=== PATIENT | male | born 1980 | race Caucasian/White ===

== ENCOUNTER 2018-09-12 19:26 | Inpatient (IN) | payer MEDICAID ==
[~2018-09-12] VITALS: Ht 185.4 cm; Wt 95.0 kg
--- NOTE | ~2018-09-12 | MORECARE ---
CASE MANAGEMENT DISCHARGE SUMMARY PATIENT: NEIDA SOUTH UNIT: [id number] ADM DATE: 09/12/18 AGE: 37 : 78 SEX: M ROOM/BED: D.2206 AUTHOR: PIYUSH HAY PHYSICIAN: REFERRING PHYSICIAN: AHMET BACON MD DATE OF SERVICE: 09/16/18 Discharge Plan Patient Name: NEIDA SOUTH Facility: [facility]:[place] : 1980 Planned Disposition: [facility] Facility Anticipated Discharge Date: Discharge Date: 09/15/2018 Expected LOS: 0 Initial Reviewer: [email or web address] Initial Review Date: 09/12/2018 Generated: 09/16/18 10:16 am Comments DCP- Discharge Planning Updated by [email or web address]: Jamila Prado on 09/15/18 12:[address] PATIENT IS BEING [facility]ING [facility], [facility] WILL SET UP TRANSPORTATION AND MARCELL CAPUTO HAS DONE THE PEER 2 PEER DCP- Discharge Planning Updated by [email or web address]: Jamila Prado on 09/13/18 9:[address] Patient Name: NEIDA SOUTH Admission Status: ER Accout number: [id number] Admission Date: 09-12-2018 : 1980 Admission Diagnosis: Attending: AHMET BACON Current LOS: 1 Anticipated DC Date: Planned Disposition: [facility] Primary Insurance: [place] DEPT [place] [employer] Discharge Planning Comments: 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 [facility] WILL ARRANGE TRANSPORTATION. CM TO FOLLOW AND ASSIST WHERE NEEDED Elevator Service Technician: Jamila Prado Last DP export: 09/15/18 12:11 Patient Name: NEIDA SOUTH Page 52050 at 0916 All edits/amendments must be made on the electronic document DICTATION DATE: 09/16/18915 CONFERENCE PLANNER: AARON 09/16/18915 RPT#: [id number] DC DATE:09/15/18 STATUS: DIS IN [facility] [address] [place] [address] END OF REPORT
--- NOTE | ~2018-09-12 | MORECARE ---
CASE MANAGEMENT DISCHARGE SUMMARY PATIENT: NEIDA SOUTH UNIT: [id number] ADM DATE: 09/12/18 AGE: 37 : 78 SEX: M ROOM/BED: D.2206 AUTHOR: PIYUSH HAY PHYSICIAN: REFERRING PHYSICIAN: AHMET BACON MD DATE OF SERVICE: 09/13/18 Discharge Plan Patient Name: NEIDA SOUTH Facility: [facility]:[place] : 1980 Planned Disposition: [facility] Anticipated Discharge Date: Discharge Date: Expected LOS: Initial Reviewer: [email or web address] Initial Review Date: 09/12/2018 Generated: 09/13/18 11:20 am DCP- Discharge Planning Updated by [email or web address]: Jamila Prado on 09/13/18 9:[address] Patient Name: NEIDA SOUTH Admission Status: ER Accout number: [id number] Admission Date: 09-12-2018 : 1980 Admission Diagnosis: Attending: AHMET BACON Current LOS: 1 Anticipated DC Date: Planned Disposition: [facility] Primary Insurance: [place] [employer] [place] [employer] Discharge Planning Comments: 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 [facility] WILL ARRANGE TRANSPORTATION. CM TO FOLLOW AND ASSIST WHERE NEEDED Welcome Center Attendant: Jamila Prado Last DP export: 09/13/18 9:12 Patient Name: NEIDA SOUTH Page 30907 at 1020 All edits/amendments must be made on the electronic document DICTATION DATE: 09/13/18 1019 PEDIATRICIAN/MEDICAL DOCTOR: AARON 09/13/18 1019 RPT#: [id number] DC DATE: STATUS: ADM IN [facility] [address] [place] [address] END OF REPORT
--- NOTE | ~2018-09-12 | CN ---
PATIENT NAME:NEIDA MADDEN MEDICAL RECORD: [id number] : [birth year] LOCATION:D.MS [place]5 ADMIT DATE: 09/12/18 ACCOUNT: [id number] CONSULTING PHYSICIAN: YUE MCRAE MD REFERRING PHYSICIAN: AHMET BACON MD DATE OF CONSULTATION: 09/13/2018 REQUESTING PHYSICIAN: Carmelo Presley MD REASON FOR CONSULTATION: Pneumonia, possible aspiration. HISTORY OF PRESENT ILLNESS: Mr. Madden is a 37-year-old gentleman who is from nursing home. The patient had colonoscopy a few days ago and then he woke up vomiting and he believed that he aspirated at the same time. He has fever and chill. There are no night sweats. Coughing with very little sputum production. REVIEW OF THE SYSTEMS: As in history of present illness. PAST MEDICAL HISTORY: 1. Seizure disorder. 2. Asthma. 3. Hypertension. 4. Gastroesophageal reflux disease. 5. Chronic backache. ALLERGIES: HE IS ALLERGIC TO PENICILLIN AND SULFA. MEDICATIONS: [employer] was reviewed. He is not on any inhalers. PERSONAL AND SOCIAL HISTORY: He is ex-smoker, he quit few years ago. He is nondrinker. FAMILY HISTORY: Significant for cardiovascular disease. PHYSICAL EXAMINATION: GENERAL: The patient is now lying comfortably in bed. He is not in acute distress. VITAL SIGNS: The blood pressure is 147/86, pulse is 101, respiration is 18, temperature is 99.9, and SpO2 is 93% on room air. HEENT: Conjunctivae are pink. Sclerae are not icteric. NECK: Neck is supple. No JVD. CHEST: The chest excursion is minimal with bilateral crackles and wheezing on forceful expiration. HEART: Rhythm regular. Normal sound. No murmur. ABDOMEN: Abdomen is soft. Bowel sounds present. No hepatosplenomegaly. RECTAL: Deferred. EXTREMITIES: No cyanosis, no clubbing, and no pedal edema. SKIN: The skin is warm. Normal turgor. CENTRAL NERVOUS SYSTEM: The patient is awake and alert. There is no obvious cranial nerve abnormality. The gait was not tested. DIAGNOSTIC DATA: CT scan of the chest; there is consolidation of the left lower lobe and lingula. There is wall thickening of the distal esophagus. CONSULT REPORT [id number] NEIDA MADDEN [facility] DATA: CBC with WBC 18.9, hemoglobin 14.4, hematocrit 40.8, and platelet count is 206. IMPRESSION: 1. Pneumonia, left lower lobe, lingula, possible aspiration pneumonia as the patient vomited post-colonoscopy. 2. Leukocytosis secondary to pneumonia. 3. Asthma. 4. Gastroesophageal reflux disease. 5. Ex-smoker. 6. Seizure disorder. RECOMMENDATION: 1. Start on meropenem 1 gram q. 8 hourly. 2. Start Brovana and budesonide nebulizer. 3. Chest x-ray PA and lateral in the morning. 4. Mucinex DM. 5. Followup labs. Dr. Presley, thank you for involving me in the care of Mr. Madden. TRANSINT:[id number] Voice Confirmation ID: [id number] DOCUMENT ID: [id number] YUE MCRAE MD at 1711 CC: [id number] DICTATION DATE: 09/13/18 1620 SITE CONTROLLER: 09/13/18 1848 DIS IN 09/15/18 [facility] [address] [place] [address]
--- NOTE | ~2018-09-12 | EC ---
PATIENT:NEIDA SOUTH DATE OF SERVICE: 09/12/18 SEX: M MEDICAL RECORD: [id number] DATE OF : [birth year] LOCATION:D.MS [place] AGE OF PATIENT: 37 ADMISSION DATE: 09/12/18 REFERRING PHYSICIAN: INTERPRETING PHYSICIAN: ADRIANA ROPER MD ECHOCARDIOGRAM REPORT ECHO CHARGES 4 ECHO COMPLETE Date: 09/14/18 CLINICAL DIAGNOSIS: RESPIRATORY ARREST POST PROCEDURE ECHOCARDIOGRAPHIC MEASUREMENTS (adult normal given) AC root (d.<3.7cm) 3.6 cm LV Septum d (<1.2 cm> 1.4 cm Valve Excursion 2.1 cm LV Septum (systole) 1.5 cm Left Atria (s.<4.0cm> 4.6 cm LVPW d(<1.2cm) 0.8 cm RV (d.<2.3cm) 3.9 cm LVPW (sytole) 0.9 cm LV diastole(<5.6CM) 4.7 cm MV E-F(>70mm/sec) cm LV systole 3.6 cm LVOT Diameter 1.8 cm MV exc.(>10mm) cm Est.ejection fraction (50-75%) % DOPPLER: LVIT cm/sec A 66 cm/sec E 122 cm/sec LA cm/sec RVSP 23.4 mmHg LVOT 138 cm/sec AOP1/2T m/s Asc. Ao 127 cm/sec RVOT 88 cm/sec RA cm/sec PA 110 cm/sec AV Gradient Peak 6.4 mmHg AV Mean 4.1 mmHg AV Area 2.8 cm MV Gradient Peak 6.2 mmHg MV Mean 1.8 mmHg MV Area cm COMMENTS: Core Fitter: Iván BARBA Metal Polisher: 1 Dr. Roper TAPE# PACS Pericardial Effusion N DATE OF SERVICE: 09/14/2018 FINDINGS: 1. Left ventricular chamber size is within normal limits. Left ventricular systolic function is normal. Overall ejection fraction is estimated at 60%. 2. Left atrium is enlarged at 4.6 cm. Right atrium and right ventricle chamber sizes are as well mildly dilated. 3. Valvular structures have normal structure and motion. 4. Doppler interrogation reveals trace tricuspid regurgitation. No other valvular insufficiency or stenosis. Pulmonary systolic pressure is estimated at ECHOCARDIOGRAM REPORT [id number] NEIDA SOUTH 24 mmHg. 5. No evidence of pericardial effusion or left ventricular thrombus. TRANSINT:[id number] Voice Confirmation ID: [id number] DOCUMENT ID: [id number] ADRIANA ROPER MD at 1138 CC: [id number] DICTATION DATE: 09/14/181556 SENIOR UNDERWRITING ASSISTANT: 09/14/18 1827 ADM IN [facility] [address] [place] [address]
--- NOTE | ~2018-09-12 | MORECARE ---
CASE MANAGEMENT DISCHARGE SUMMARY PATIENT: NEIDA SOUTH UNIT: [id number] ADM DATE: 09/12/18 AGE: 37 : [birth year] SEX: M ROOM/BED: D.2206 AUTHOR: PIYUSH HAY PHYSICIAN: REFERRING PHYSICIAN: AHMET BACON MD DATE OF SERVICE: 09/13/18 Discharge Plan Patient Name: NEIDA SOUTH Facility: [facility]:[place] : 1980 Planned Disposition: [facility] Facility Anticipated Discharge Date: Discharge Date: Expected LOS: Initial Reviewer: [email or web address] Initial Review Date: 09/12/2018 Generated: 09/13/18 11:12 am Patient Name: NEIDA SOUTH Page 46656 at 1012 All edits/amendments must be made on the electronic document DICTATION DATE: 09/13/18 1012 PROCESS ARCHITECT: AARON 09/13/18 1012 RPT#: [id number] DC DATE: STATUS: ADM IN [facility] [address] [place] [address] END OF REPORT
--- NOTE | ~2018-09-12 | MORECARE ---
CASE MANAGEMENT DISCHARGE SUMMARY PATIENT: NEIDA SOUTH UNIT: [id number] ADM DATE: 09/12/18 AGE: 37 : [birth year] SEX: M ROOM/BED: D.2206 AUTHOR: PIYUSH HAY PHYSICIAN: REFERRING PHYSICIAN: AHMET BACON MD DATE OF SERVICE: 09/15/18 Discharge Plan Patient Name: NEIDA SOUTH Facility: [facility]:[place] : 1980 Planned Disposition: [facility] Facility Anticipated Discharge Date: Discharge Date: Expected LOS: Initial Reviewer: [email or web address] Initial Review Date: 09/12/2018 Generated: 09/15/18 2:11 pm Comments DCP- Discharge Planning Updated by [email or web address]: Jamila Prado on 09/15/18 12:[address] PATIENT IS BEING DISCHARGING BACK TO THE [facility], [facility] WILL SET UP TRANSPORTATION AND MARCELL CAPUTO HAS DONE THE PEER 2 PEER DCP- Discharge Planning Updated by [email or web address]: Jamila Prado on 09/13/18 9:[address] Patient Name: NEIDA SOUTH Admission Status: ER Accout number: [id number] Admission Date: 09-12-2018 : 1980 Admission Diagnosis: Attending: AHMET BACON Current LOS: 1 Anticipated DC Date: Planned Disposition: [facility] Facility Primary Insurance: [place] DEPT OF CORRE[employer] Discharge Planning Comments: 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 THE [facility] WILL ARRANGE TRANSPORTATION. CM TO FOLLOW AND ASSIST WHERE NEEDED [employer] H[employer] Consultant: Jamila Prado Last DP export: 09/13/18 9:20 Patient Name: NEIDA SOUTH Page 50515 at 1311 All edits/amendments must be made on the electronic document DICTATION DATE: 09/15/18 131 ELECTRIC MOTOR TESTER: AARON 09/15/18 131 RPT#: [id number] DC DATE: STATUS: ADM IN [facility] [address] [place] [address] END OF REPORT
[2018-09-12] MEDS ORDERED: NORMODYNE / TR300 MG PO (19:29)
[2018-09-12] MEDS ORDERED: HYDRALAZINE HCL25 MG PO (19:29)
[2018-09-12] MEDS ORDERED: LONITEN10 MG PO (19:29)
[2018-09-12] MEDS ORDERED: TIAZAC/CARDIZE240 M1 PO (19:30)
[2018-09-12] MEDS ORDERED: COZAAR50 MG PO (19:30)
[2018-09-12] MEDS ORDERED: ASPIRIN81 MG PO (19:30)
[2018-09-12] MEDS ORDERED: CATAPRES0.3 MG PO (19:30)
[2018-09-12] MEDS ORDERED: FUROSEMIDE40 MG PO (19:30)
[2018-09-12] MEDS ORDERED: PEPCID AC20 MG PO (19:30)
[2018-09-12] MEDS ORDERED: CHLORTHALIDONE50 MG PO (19:31)
[2018-09-12 19:56] LABS: BASOPHILS 0.1 % (0-2); EOSINOPHILS 0 % (0-7); HEMATOCRIT 40.8 % (42.0-54.0); HEMOGLOBIN 14.5 g/dL (13.5-17.5); IMMATURE GRANULOCYTES 0.3 % (0-5); LYMPHOCYTES 4.7 % (15-50); MCH 30.2 pg (26.0-34.0); MCHC 35.5 g/dL (31.0-37.0); MONOCYTES 10.2 % (2-11); NEUTROPHILS 84.7 % (40-80); PLATELET COUNT 206 10x3/uL (130-400); RDW 13.3 % (11.5-14.5); WBC 18.9 10x3/uL (4.8-10.8)
[2018-09-12 20:06] VITALS: BP 131/84
[2018-09-12 20:25] LABS: ALBUMIN 3.8 g/dL (3.4-5.0); ALKALINE PHOSPHATASE 145 U/L (46-116); ALT (SGPT) 33 U/L (10-68); BILIRUBIN - TOTAL 0.86 mg/dL (0.2-1.3); CALC OSMOLALITY 279 mosm/kg (275-300); CALCIUM 8.9 mg/dL (8.5-10.1); CARBON DIOXIDE 21.6 mmol/L (21.0-32.0); CHLORIDE - SERUM 106 mmol/L (98-107); CREATININE - SERUM 0.8 mg/dL (0.6-1.3); GLUCOSE 121 mg/dL (74-106); LIPASE 54 U/L (73-393); POTASSIUM - SERUM 3.5 mmol/L (3.5-5.1); PROTEIN - SERUM 7.2 g/dL (6.4-8.2); SODIUM 140 mmol/L (136-145); UREA NITROGEN 13 mg/dL (7-18); eGFR NON AFRICAN AMERICAN > 90 mL/min (90-120)
[2018-09-12 20:39] LABS: APPEARANCE CLEAR (CLEAR); BILIRUBIN NEGATIVE (NEGATIVE); COLOR DK YELLOW (YELLOW); GLUCOSE NEGATIVE (NEGATIVE); KETONE MODERATE mg/dL (NEGATIVE); NITRITE NEGATIVE (NEGATIVE); PROTEIN NEGATIVE (NEGATIVE); UROBILINOGEN NORMAL (NORMAL)
[2018-09-13 00:13] VITALS: BP 140/72; BMI 27.6
[2018-09-13] MEDS ORDERED: ACETAMINOPHEN325 MG PO (01:24)
[2018-09-13 05:02] VITALS: BP 133/88
[2018-09-13 08:32] VITALS: BP 147/86
[2018-09-13 09:41] LABS: BASOPHILS 0.1 % (0-2); EOSINOPHILS 0.3 % (0-7); HEMATOCRIT 37.7 % (42.0-54.0); HEMOGLOBIN 13.3 g/dL (13.5-17.5); IMMATURE GRANULOCYTES 0.2 % (0-5); LYMPHOCYTES 10.2 % (15-50); MCH 29.8 pg (26.0-34.0); MCHC 35.3 g/dL (31.0-37.0); MCV 84.5 fL (80.0-100.0); MEAN PLATELET VOLUME 8.7 fL (7.4-10.4); MONOCYTES 6.5 % (2-11); NEUTROPHILS 82.7 % (40-80); PLATELET COUNT 190 10x3/uL (130-400); RBC 4.46 10x6/uL (4.20-6.10); RDW 13.1 % (11.5-14.5); WBC 18.1 10x3/uL (4.8-10.8)
[2018-09-13 09:57] LABS: ALBUMIN 3.3 g/dL (3.4-5.0); ALKALINE PHOSPHATASE 130 U/L (46-116); ALT (SGPT) 28 U/L (10-68); CALC OSMOLALITY 280 mosm/kg (275-300); CALCIUM 8.5 mg/dL (8.5-10.1); CHLORIDE - SERUM 106 mmol/L (98-107); CREATININE - SERUM 0.9 mg/dL (0.6-1.3); GLUCOSE 130 mg/dL (74-106); POTASSIUM - SERUM 3.4 mmol/L (3.5-5.1); PROTEIN - SERUM 6.8 g/dL (6.4-8.2); SODIUM 140 mmol/L (136-145); UREA NITROGEN 12 mg/dL (7-18); eGFR NON AFRICAN AMERICAN > 90 mL/min (90-120)
[2018-09-13 12:48] VITALS: BP 151/92
[2018-09-13 17:17] VITALS: BP 161/103
[2018-09-13 21:11] VITALS: BP 160/114
[2018-09-14 00:35] VITALS: BP 162/107
[2018-09-14 05:18] VITALS: BP 154/94
[2018-09-14 06:57] LABS: BASOPHILS 0.2 % (0-2); EOSINOPHILS 2.6 % (0-7); HEMATOCRIT 39.2 % (42.0-54.0); HEMOGLOBIN 13.7 g/dL (13.5-17.5); IMMATURE GRANULOCYTES 0.2 % (0-5); LYMPHOCYTES 17.8 % (15-50); MCH 29.8 pg (26.0-34.0); MCHC 34.9 g/dL (31.0-37.0); MCV 85.4 fL (80.0-100.0); MEAN PLATELET VOLUME 9.4 fL (7.4-10.4); MONOCYTES 9.6 % (2-11); NEUTROPHILS 69.6 % (40-80); RBC 4.59 10x6/uL (4.20-6.10); RDW 13.4 % (11.5-14.5)
[2018-09-14 07:01] LABS: PLATELET COUNT 239 10x3/uL (130-400); WBC 12.1 10x3/uL (4.8-10.8)
[2018-09-14 07:18] LABS: ALBUMIN 3.4 g/dL (3.4-5.0); ALKALINE PHOSPHATASE 133 U/L (46-116); ALT (SGPT) 26 U/L (10-68); BILIRUBIN - TOTAL 0.51 mg/dL (0.2-1.3); CALC OSMOLALITY 280 mosm/kg (275-300); CALCIUM 8.9 mg/dL (8.5-10.1); CARBON DIOXIDE 26.2 mmol/L (21.0-32.0); CHLORIDE - SERUM 106 mmol/L (98-107); CREATININE - SERUM 0.7 mg/dL (0.6-1.3); GLUCOSE 97 mg/dL (74-106); POTASSIUM - SERUM 3.6 mmol/L (3.5-5.1); PROTEIN - SERUM 7.1 g/dL (6.4-8.2); SODIUM 142 mmol/L (136-145); eGFR NON AFRICAN AMERICAN > 90 mL/min (90-120)
[2018-09-14 07:19] LABS: UREA NITROGEN 8 mg/dL (7-18)
[2018-09-14 08:35] VITALS: BP 181/123
[2018-09-14 11:44] VITALS: BP 162/115
[2018-09-14 16:39] VITALS: BP 183/99
[2018-09-14 21:11] VITALS: BP 188/124
[2018-09-15 03:39] VITALS: BP 194/112
[2018-09-15 09:03] VITALS: BP 170/129
[2018-09-15 09:50] LABS: BASOPHILS 0.1 % (0-2); EOSINOPHILS 2.6 % (0-7); HEMATOCRIT 38.4 % (42.0-54.0); HEMOGLOBIN 13.4 g/dL (13.5-17.5); LYMPHOCYTES 23.3 % (15-50); MCH 29.8 pg (26.0-34.0); MCHC 34.9 g/dL (31.0-37.0); MCV 85.3 fL (80.0-100.0); MEAN PLATELET VOLUME 8.9 fL (7.4-10.4); MONOCYTES 6.6 % (2-11); NEUTROPHILS 67.4 % (40-80); PLATELET COUNT 222 10x3/uL (130-400); RDW 13.3 % (11.5-14.5); WBC 9.2 10x3/uL (4.8-10.8)
[2018-09-15 09:58] VITALS: Ht 185.4 cm; Wt 95.0 kg
[2018-09-15 10:11] LABS: ALBUMIN 3.5 g/dL (3.4-5.0); ALKALINE PHOSPHATASE 139 U/L (46-116); ALT (SGPT) 25 U/L (10-68); CALC OSMOLALITY 282 mosm/kg (275-300); CALCIUM 9.1 mg/dL (8.5-10.1); CARBON DIOXIDE 27.8 mmol/L (21.0-32.0); CHLORIDE - SERUM 106 mmol/L (98-107); CREATININE - SERUM 0.8 mg/dL (0.6-1.3); GLUCOSE 111 mg/dL (74-106); POTASSIUM - SERUM 3.3 mmol/L (3.5-5.1); PROTEIN - SERUM 7.5 g/dL (6.4-8.2); SODIUM 142 mmol/L (136-145); UREA NITROGEN 11 mg/dL (7-18); eGFR NON AFRICAN AMERICAN > 90 mL/min (90-120)
[2018-09-15] MEDS ORDERED: CLEOCIN HCL300 MG PO (12:19)
[2018-09-15] MEDS ORDERED: VIBRAMYCIN 100100 MG PO (12:19)
[2018-09-15] MEDS ORDERED: BROVANA15 MCG/2 M INH (12:19)
[2018-09-15] MEDS ORDERED: XOPENEX 1.1.25 MG/3 UPD (12:19)
[2018-09-15] MEDS ORDERED: TESSALON PERLE100 MG PO (12:19)
[2018-09-15] MEDS ORDERED: MUCINEX600 MG PO (12:19)
[2018-09-15 12:36] VITALS: BP 169/105
== END 2018-09-15 15:14 | DRG 205 ==
LOC: D.ER 19:26 → D.MS 22:48
PROVIDERS: Emergency Medicine; Family Medicine
DX: J95.89 Other postprocedural complications and disorders of respiratory system, not elsewhere classified (principal); J69.0 Pneumonitis due to inhalation of food and vomit; E87.6 Hypokalemia; I10 Essential (primary) hypertension; J45.909 Unspecified asthma, uncomplicated; G40.909 Epilepsy, unspecified, not intractable, without status epilepticus

== ENCOUNTER → 2018-11-30 05:17 | Day surgery (SDC) | payer OTHER ==
[2018-09-15 09:58] VITALS: BMI 27.6
[~2018-11-30 05:17] MED LIST: ACETAMINOPHEN325 MG PO; ASPIRIN81 MG PO; BROVANA15 MCG/2 M INH; CATAPRES0.3 MG PO; CHLORTHALIDONE50 MG PO; CLEOCIN HCL300 MG PO; COZAAR50 MG PO; FUROSEMIDE40 MG PO; HYDRALAZINE HCL25 MG PO; LONITEN10 MG PO; MUCINEX600 MG PO; NORMODYNE / TR300 MG PO; PEPCID AC20 MG PO; TESSALON PERLE100 MG PO; TIAZAC/CARDIZE240 M1 PO; VIBRAMYCIN 100100 MG PO; XOPENEX 1.1.25 MG/3 UPD
== END | disposition home or self-care (01) ==
LOC: D.OPS 05:17
DX: K63.5 Polyp of colon (principal); Z53.9 Procedure and treatment not carried out, unspecified reason; Z01.812 Encounter for preprocedural laboratory examination

== ENCOUNTER 2018-12-28 11:53 | Day surgery (SDC) | payer MEDICAID ==
[~2018-12-28] VITALS: Ht 185.4 cm; Wt 103.2 kg
--- NOTE | ~2018-12-28 | OP ---
PATIENT NAME: NEIDA SOUTH MEDICAL RECORD: [id number] :[birth year] LOCATION:D.OPS ADMISSION DATE: SURGEON: RIN FERNANDEZ MD DATE OF OPERATION: 12/28/2018 PREOPERATIVE DIAGNOSES: 1. Intractable gastroesophageal reflux. 2. Volume gastroesophageal reflux. 3. History of aspiration pneumonia during endoscopic procedure. 4. Dysphagia. 5. Known history of a residual colon polyp within the sigmoid colon. 6. Hepatitis C. POSTOPERATIVE DIAGNOSES: 1. Intractable gastroesophageal reflux. 2. Volume gastroesophageal reflux. 3. History of aspiration pneumonia during endoscopic procedure. 4. Dysphagia. 5. Known history of a residual colon polyp within the sigmoid colon. 6. Hepatitis C. 7. Schatzki's ring in the distal esophagus. Also, glandular material at the esophagogastric junction, which is suspicious for Freed esophagus. 8. Rodriguez moderate gastritis with patchy linear ulcers. 9. Moderate duodenal bulbar duodenitis with erosions. PROCEDURES: 1. Esophagogastroduodenoscopy with antral and distal esophageal biopsies. 2. Esophageal dilation through catheter balloon to 60-[place]an. 3. Total colonoscopy to the cecum. 4. Polypectomy utilizing the endoscopic mucosal resection technique. 5. Submucosal epinephrine injection. 6. Treatment of peripolypoid tissue with the argon plasma mounting inspector with the right colon setting in the forced mode. 6. Placement of 1 endoscopic clip for hemostasis. SURGEON: Rin Fernandez MD CAMPGROUND MANAGER: None. BLOOD LOSS: Minimal. ANESTHESIA: General. COMPLICATIONS: None. The risks, possible complications and alternatives to procedure were explained to the patient. He elects to proceed. The discussion specifically included, but was not limited to, bleeding requiring emergency reoperation, infection, aspiration, and aspiration pneumonia. I contact Dr. Reilly by phone and she agreed to have the patient undergo an EGD. We felt this was a safer route so that I would be able to aspirate out of the gastric contents before proceeding with the rest of the EGD and with a colonoscopy and this would decrease his chance of an aspiration pneumonia. OPERATIVE REPORT [id number] NEIDA SOUTH No esophageal varices were noted in this patient with hepatitis C. ENDOSCOPIC COURSE: The patient was conveyed to the endoscopy suite electively on 12/28/2018. IV sedation was induced by the anesthesia staff. A bite block was inserted. A gastroscope was inserted into the mouth. It was advanced easily into the hypopharynx. The esophagus was easily intubated as were the stomach and duodenum. During the intubation process, I aspirated out the stomach. Retroflexed and angulus views were obtained. Antral biopsies were obtained. I withdrew into the cardia of the stomach. I advanced through the catheter balloon. I then sequentially dilated the entire length of the esophagus to 60-[place]an. The gastroscope and balloon dilator were then removed. I re-endoscoped the patient's esophagus and stomach. There had been no evidence of false passage or perforation. Multiple EG junction biopsies were obtained to rule out Freed esophagus. The gastroscope was then withdrawn under direct vision. The patient was turned 180 degrees and placed in the Choudhury position. A digital rectal examination was performed. A colonoscope was inserted through the anus. It was easily advanced to the cecum. The prep was excellent. I slowly withdrew the endoscope. I irrigated and aspirated extensively. I utilized not only normal imaging but also narrow band imaging to visualize the yanes of the large bowel. I noted the residual polyp at 22 cm. For postoperative hemostasis, I advanced a sclerotherapy needle. Submucosal injection of epinephrine was performed. A submucosal injection of Eleview was then performed to create a pillow, which have helped to lift the polyp away from the colonic wall. I then advanced an endoscopic snare. I was able to snare the base of the polyp utilizing the coagulation setting and then the cut setting. The snare was then withdrawn out through the anus. I re-advanced the endoscope. There was some peripolypoid tissue that I ablated with the argon plasma mounting inspector. In order to ensure hemostasis, one endoscopic clip was applied. A retroflexed view was obtained in the rectum. The scope was then unretroflexed and removed under direct vision. There is no reason for the patient to see me in the office. I can follow up with the patient in the detention. TRANSINT:[id number] Voice Confirmation ID: [id number] DOCUMENT ID: [id number] RIN FERNANDEZ MD CC: LACEY ALVAREZ MD, RIN SORIA MD, ADRIANA STEWART MD and [id number] L DICTATION DATE: 12/28/18 1654 CONDITIONER TENDER: 12/29/18 0106 [facility] 12/28/18 [id number] [place] [address]
[2018-12-28 13:35] VITALS: BP 159/118; Ht 185.4 cm; Wt 103.2 kg
[2018-12-28 14:36] LABS: CALC OSMOLALITY 285 mosm/kg (275-300); CALCIUM 9.8 mg/dL (8.5-10.1); CHLORIDE - SERUM 105 mmol/L (98-107); GLUCOSE 97 mg/dL (74-106); POTASSIUM - SERUM 4.2 mmol/L (3.5-5.1); SODIUM 143 mmol/L (136-145); UREA NITROGEN 14 mg/dL (7-18); eGFR NON AFRICAN AMERICAN 88 mL/min (90-120)
[2018-12-28 14:52] LABS: HEMATOCRIT 42.9 % (42.0-54.0); HEMOGLOBIN 15.2 g/dL (13.5-17.5); MCH 30.2 pg (26.0-34.0); MCHC 35.4 g/dL (31.0-37.0); MCV 85.3 fL (80.0-100.0); MEAN PLATELET VOLUME 9.5 fL (7.4-10.4); RBC 5.03 10x6/uL (4.20-6.10); WBC 7.9 10x3/uL (4.8-10.8)
--- NOTE | 2018-12-28 14:55 | NUR ---
CALLED ANESTHESIA (DR. POE) REGARDING PT'S BP. PREVIOUSLY IT WAS 166/111. ADMINISTERED HYDRALAZINE 5 MG PER ORDER. RECHECKED AT 1450 AND IT WAS 154/95. DR. POE STATES TO HAVE PCP F/U REGARDING HTN.
--- NOTE | 2018-12-28 16:41 | NUR ---
ESOPHAGUS DILATED WITH 60 LUXEMBOURGER FOR 2.5 MINUTES.
--- NOTE | 2018-12-30 11:34 | HP ---
PATIENT: NEIDA SOUTH MEDICAL RECORD: [id number] ACCOUNT: [id number] LOCATION:DSHAYY : [birth year] ADMISSION DATE: 12/28/18 PCP: No PCP HISTORY AND PHYSICAL EXAMINATION CHIEF COMPLAINT: Here for colonoscopy. I had performed a colonoscopy as well as a partial polypectomy on this patient out at the [facility]. During the procedure the patient develeoped an aspiration pneumonia, which required hospitalization for several days. The patient has upper tract symptoms including volume reflux and at night he aspirates up into his oropharynx or actually aspirates into his lungs. He has dysphagia at the level of cricopharyngeus, has a history of hepatitis C, which has not been evaluated for varices, so I am going to plan to do an EGD as well as esophageal dilation. I contacted Dr. Reilly at the [facility] and she concurs. The EGD I think is going to make his colonoscopy safer because during the first part of the EGD I will make sure to aspirate all the fluid out of his stomach to decrease the risk of aspiration pneumonia. We know that he has got a very large polyp in the sigmoid colon, this then was not completely removed due to the fact that we had to discontinue his endoscopic procedure out at the longterm. HOME MEDICATIONS: Please see the nursing list. ALLERGIES: PENICILLIN AND SULFA. SOCIAL HISTORY: Ex-smoker. PAST MEDICAL AND SURGICAL HISTORY: Remote history of seizures, hypertension, and hepatitis C. PHYSICAL EXAMINATION: GENERAL: The patient does not appear acutely ill. He does not appear chronically ill. VITAL SIGNS: Reviewed. HEAD: External ears appear normal. EYES: Extraocular movements are intact. NECK: Trachea is midline. CHEST: No intercostal retractions. PULMONARY: Nonlabored and no stridor. IMPRESSION: 1. History of aspiration pneumonia. 2. Hepatitis C. 3. Volume reflux. 4. Intractable gastroesophageal reflux. 5. History of an indwelling colon polyp. PLAN: EGD, esophageal dilation, colonoscopy with polypectomy. TRANSINT:[id number] Voice Confirmation ID: [id number] DOCUMENT ID: [id number] HISTORY AND PHYSICAL [id number] NEIDA SOUTH ROBERT MD at 1134 CC: LACEY ALVAREZ MD, RIN SORIA MD, ADRIANA STEWART MD and [id number] L DICTATION DATE: 12/28/18 1539 SUPERVISOR PAINTING: 12/28/182047 [facility] 12/28/18 [address] [place] [address]
== END 2018-12-28 17:48 | disposition home or self-care (01) ==
LOC: D.OPS 11:53
PROVIDERS: Anesthesiology; ATTEND Surgery
DX: K21.9 Gastro-esophageal reflux disease without esophagitis (principal); Z86.010 Personal history of colon polyps; B19.20 Unspecified viral hepatitis C without hepatic coma; K22.2 Esophageal obstruction; K29.50 Unspecified chronic gastritis without bleeding; K63.5 Polyp of colon; K29.80 Duodenitis without bleeding; Z01.812 Encounter for preprocedural laboratory examination